=== PATIENT | female | born 1940 | race Caucasian/White ===

== ENCOUNTER 2021-10-12 16:51 | Inpatient (IN) | payer MEDICARE, BC ==
[~2021-10-12] VITALS: Ht 157.5 cm; Wt 41.4 kg
[2021-10-12 17:26] LABS: HEMATOCRIT 36.7 % (31.2-41.9); MEAN CORPUSCULAR VOLUME 87.9 fL (75.5-95.3); PLATELET COUNT (AUTO) 524 K/uL (179-408)
--- NOTE | 2021-10-12 17:27 | NUR ---
PT out of ER for CT scan.
[2021-10-12] MEDS ORDERED: CEFTRIAXONE 1 G in IV DEXTROSE 5% 50 ML IV ONE (17:45)
[2021-10-12 17:47] LABS: CARBON DIOXIDE 21 mmol/L (21-32); CHLORIDE 106 mmol/L (98-107); CREATININE 1.2 mg/dL (0.6-1.3); GLUCOSE 171 mg/dL (74-106); POTASSIUM 4.1 mmol/L (3.5-5.1); UREA NITROGEN, BLOOD 32 mg/dL (7-18)
[2021-10-12 17:48] LABS: THYROID STIMULATING HORMONE 0.745 mIU/mL (0.358-3.740)
[2021-10-12 17:53] LABS: ALANINE AMINOTRANSFERASE 32 U/L (14-59); ALKALINE PHOSPHATASE 113 U/L (50-136); ASPARTATE AMINOTRANSFERASE 22 U/L (15-37); BILIRUBIN,DIRECT 0.5 mg/dL (0.0-0.2); BILIRUBIN,TOTAL 0.8 mg/dL (0.2-1.0); TOTAL PROTEIN, SERUM 6.6 g/dL (6.4-8.2)
[2021-10-12] MEDS ORDERED: IV NORMAL SALINE 1000 ML BAG IV ONE ×2 (18:00→20:00)
[2021-10-12] MEDS ORDERED: IOHEXOL 350 100 ML INFUS..BTL ONE ×2 (18:06→19:58)
[2021-10-12] MEDS ORDERED: SWABABLE VALVE TRANSFER SET EA MC ONE ×2 (18:06→19:58)
[2021-10-12] MEDS ORDERED: IV NORMAL SALINE 0 ML IV ONE (18:06)
--- NOTE | 2021-10-12 18:09 | NUR ---
Dr Casas signed consent for CTA, due to pt's mental unability.
[2021-10-12] MEDS ORDERED: CEFTRIAXONE /D5W 50ML IVPB **ER PYXIS IV ONE ×2 (18:11→23:02)
--- NOTE | 2021-10-12 18:22 | NUR ---
Pt back from Ctscan, pt's HL on RT AC infiltrated and Chain Saw Mechanic unable to do CTA. Attempted to place a new prepheral line but unable, notified .
[2021-10-12] MEDS ORDERED: ENOXAPARIN SODIUM 40 MG/0.4 ML DISP.SYRIN SQ ONE ×2 (18:45→19:08)
[2021-10-12] MEDS ORDERED: DIPHENOXYLATE HCL/ATROP SULF TABLET PO ONE (18:45)
[2021-10-12] MEDS ORDERED: HYDR10TA PO (18:47)
[2021-10-12] MEDS ORDERED: PANT40TA49 PO (18:47)
[2021-10-12] MEDS ORDERED: METO25TA6 PO (18:47)
[2021-10-12] MEDS ORDERED: MAGN400T8 PO (18:47)
[2021-10-12] MEDS ORDERED: AMLO-212 PO (18:47)
[2021-10-12] MEDS ORDERED: CYCL100C PO (18:47)
[2021-10-12] MEDS ORDERED: SERT50TA PO (18:47)
[2021-10-12] MEDS ORDERED: FLUD0.1T PO (18:47)
[2021-10-12] MEDS ORDERED: MIDO2.5T PO (18:47)
[2021-10-12] MEDS ORDERED: ATOR10TA PO (18:47)
[2021-10-12] MEDS ORDERED: POTA10CA43 PO (18:47)
[2021-10-12] MEDS ORDERED: FERR325T28 PO (18:47)
--- NOTE | 2021-10-12 19:08 | NUR ---
Midline placed by midline nurse on RUE.
--- NOTE | 2021-10-12 19:57 | NUR ---
Patient went down to radiology dept for CTA.
[2021-10-12] MEDS ORDERED: IV NORMAL SALINE 250 ML IV ONE (19:58)
--- NOTE | 2021-10-12 20:13 | NUR ---
Patient back from CT. placed back on monitor. noted pt HR 130s. informed Dr. Jefe HALL MD. 1L IV fluids slowly infusing as ordered.
[2021-10-12] MEDS ORDERED: AZITHROMYCIN IV 500 MG in IV DEXTROSE 5% 250 ML IV SCH (20:30)
[2021-10-12] MEDS ORDERED: ONDANSETRON 4 MG/2 ML VIAL IV PRN (20:30)
[2021-10-12] MEDS ORDERED: PANTOPRAZOLE SODIUM 40 MG TABLET.DR PO SCH (20:30)
[2021-10-12] MEDS ORDERED: METOPROLOL TARTRATE 25 MG TABLET PO SCH (20:30)
[2021-10-12] MEDS ORDERED: DEXTROSE 50% 50 ML DISP.SYRIN IV PRN (20:45)
[2021-10-12] MEDS ORDERED: DOCUSATE SODIUM 250 MG CAPSULE PO SCH (21:00)
--- NOTE | 2021-10-12 22:06 | NUR ---
Patient's HR still remains in 130s. sinus tachycardia despite 1L IVF. patient is nonfebrile. temp 98.7 oral. Paged [facility] to speak with chacho ESTRELLA.
[2021-10-12] MEDS ORDERED: METOPROLOL TARTRATE 50 MG TABLET PO ONE (22:15)
[2021-10-12] MEDS ORDERED: AZITHROMYCIN 500MG/ D5W 250ML IVPB **ER PYXIS ONLY IV ONE ×2 (22:32→22:34)
[2021-10-12] MEDS ORDERED: DOCUSATE SODIUM 100 MG CAPSULE PO ONE (22:47)
[2021-10-12] MEDS ORDERED: ATORVASTATIN 40 MG TABLET ONE (22:48)
[2021-10-12] MEDS ORDERED: PANTOPRAZOLE SODIUM 40 MG TABLET.DR PO ONE (22:48)
[2021-10-12] MEDS: ATORVASTATIN 10 MG TABLET PO SCH (22:50)
[2021-10-12] MEDS: CEFTRIAXONE 1 G in IV DEXTROSE 5% 50 ML IV SCH (22:57)
[2021-10-13] MEDS: BLOOD SUGAR DIAGNOSTIC 1 EACH STRIP VI SCH ×5 (00:42→21:30)
[2021-10-13] MEDS: INSULIN REGULAR, HUMAN 300 UNIT/3 ML VIAL SQ PRN ×2 (00:42→12:34)
[2021-10-13] MEDS ORDERED: INSULIN REGULAR, HUMAN 300 UNIT/3 ML VIAL ONE ×2 (00:50→12:43)
--- NOTE | 2021-10-13 00:55 | NUR ---
Patients vital signs are improved. HR 99. BP 99/55. Patient appears in no distress. Patient is pending inpatient transfer for admission but no beds available at this time. Spoke w/pharmacist earlier who states no cyclosporine (modified Gengraf) available. called patient's son Buzz earlier and spoke with him & said they will bring her medication tomorrow AM. Pt. admitted to Telemetry, under care of Dr. King Dx: Altered Mental Status/Pneumonia Belongs List completed
[2021-10-13 06:09] LABS: MEAN CORPUSCULAR HEMOGLOBIN 28.8 uug (24.7-32.8); PLATELET COUNT (AUTO) 418 K/uL (179-408)
[2021-10-13] MEDS: PANTOPRAZOLE SODIUM 40 MG TABLET.DR PO SCH (07:00)
[2021-10-13 07:01] LABS: BILIRUBIN,TOTAL 0.3 mg/dL (0.2-1.0); CREATININE 1.2 mg/dL (0.6-1.3); MAGNESIUM 1.3 mg/dL (1.8-2.4); PHOSPHOROUS 3.7 mg/dL (2.5-4.9); POTASSIUM 4.4 mmol/L (3.5-5.1); TOTAL PROTEIN, SERUM 5.6 g/dL (6.4-8.2)
--- NOTE | 2021-10-13 07:56 | NUR ---
PT IS RESTING IN BED COMFORTABLY. NO S/S OF ACUTE DISTRESS AT THIS TIME.
[2021-10-13] MEDS: AMLODIPINE 5 MG TABLET PO SCH (08:22)
[2021-10-13] MEDS ORDERED: PANTOPRAZOLE SODIUM 40 MG TABLET.DR PO ONE (08:36)
[2021-10-13] MEDS ORDERED: HYDROCORTISONE 10 MG TABLET PO SCH (09:00)
[2021-10-13] MEDS ORDERED: ENOXAPARIN SODIUM 40 MG/0.4 ML DISP.SYRIN SQ SCH (09:00)
[2021-10-13] MEDS ORDERED: PANTOPRAZOLE SODIUM 40 MG VIAL IV SCH (09:00)
[2021-10-13] MEDS: CYCLOSPORINE 25 MG PO SCH ×2 (09:35→18:55)
[2021-10-13] MEDS: [UNRECOGNIZED DRUG - OTHER] PO SCH ×2 (09:35→18:55)
[2021-10-13] MEDS: MAGNESIUM SULFATE/D5W 100 ML IV SCH ×4 (09:53→12:30)
[2021-10-13] MEDS ORDERED: MAGNESIUM SULFATE/D5W 100 ML ONE ×3 (10:08→14:30)
--- NOTE | 2021-10-13 12:54 | NUR ---
PT'S SON ADRIENNE CALLED TO [facility] ER TO RECEIVE UPDATE ABOUT HIS MOTHER MEDICAL TRATMENT. DR PERDOMO STATED THAT SHE IS GOING TO CALL HIM ([phone]) WITH UPDATE AFTER SHE WILL REVIEWED PT's RECENT LABS AND CT SCANS RESULTS.
[2021-10-13 16:58] VITALS: BP 147/81
[2021-10-13 16:58] LABS: *BILIRUBIN,URIN NEGATIVE (NEGATIVE); *BLOOD, URINE 1+ (NEGATIVE); *CLARITY,URINE CLEAR (CLEAR); *COLOR,URINE YELLOW (YELLOW); *KETONES,URINE NEGATIVE (NEGATIVE); *UROBILINOGEN,URINE 0.2 E.U./dl (NORMAL); LEUKOCYTE ESTERASE ,URINE NEGATIVE (NEGATIVE); NITRITE, URINE NEGATIVE (NEGATIVE); UGLUCOSE NEGATIVE (NEGATIVE)
--- NOTE | 2021-10-13 17:00 | NUR ---
DR PERDOMO EVALUATED THE PT.
--- NOTE | 2021-10-13 17:01 | NUR ---
REPORT WAS GIVEN TO PHOTO MASK PATTERN GENERATOR HOMMER. PT WAS TRANSFERED TO ROOM #304.
[2021-10-13 17:14] LABS: BACTERIA,URINE NONE SEEN /HPF (NONE SEEN); CALCIUM OXALATE CRYSTALS,UR RARE /HPF (NONE SEEN); SQUAMOUS EPITHELIAL CELL,UR NONE SEEN /HPF (NONE SEEN)
[2021-10-13] MEDS ORDERED: FLUDROCORTISONE ACETATE 0.1 MG TABLET PO SCH (18:00)
--- NOTE | 2021-10-13 18:30 | NUR ---
Pt is in no acute distress. Noted swelling on right arm. ML flushes well. NOted bruising on UE's. Sacral redness. Noted pictures taken.
--- NOTE | 2021-10-13 19:00 | NUR ---
Received pt awake, alert and orientedx2. Pt in no acute distress. Iv intact.MCC assessment done. Admission process and care plan initiated. Safety and comfort provided. Will continue to monitor.
[2021-10-13] MEDS: FLUDROCORTISONE ACETATE 0.1 MG TABLET PO SCH (20:41)
[2021-10-13] MEDS: AZITHROMYCIN 250 MG TABLET PO SCH (20:41)
[2021-10-13] MEDS: DOCUSATE SODIUM 100 MG CAPSULE PO SCH (20:41)
[2021-10-13] MEDS: ATORVASTATIN 10 MG TABLET PO SCH (20:41)
[2021-10-13] MEDS: HYDROCORTISONE 10 MG TABLET PO SCH (20:45)
[2021-10-13] MEDS: ENOXAPARIN SODIUM 40 MG/0.4 ML DISP.SYRIN SQ SCH (20:52)
[2021-10-13 21:21] VITALS: BP 160/67
[2021-10-13 22:00] VITALS: BP 145/68
[2021-10-13] MEDS ORDERED: CEFTRIAXONE /D5W 50ML IVPB **ER PYXIS IV ONE (23:14)
[2021-10-13] MEDS: CEFTRIAXONE 1 G in IV DEXTROSE 5% 50 ML IV SCH (23:49)
[2021-10-13] MEDS: ACETAMINOPHEN 325 MG TABLET PO PRN (23:55)
[2021-10-14 00:16] VITALS: BP 144/68
[2021-10-14 05:00] VITALS: BP 128/69
[2021-10-14 05:48] LABS: HEMATOCRIT 31.7 % (31.2-41.9); MEAN CORPUSCULAR HEMOGLOBIN 29.4 uug (24.7-32.8); MEAN CORPUSCULAR VOLUME 88.8 fL (75.5-95.3); PLATELET COUNT (AUTO) 400 K/uL (179-408)
[2021-10-14 06:00] LABS: CREATININE 1.3 mg/dL (0.6-1.3); MAGNESIUM 2.5 mg/dL (1.8-2.4); PHOSPHOROUS 4.7 mg/dL (2.5-4.9); POTASSIUM 4.1 mmol/L (3.5-5.1)
[2021-10-14] MEDS: PANTOPRAZOLE SODIUM 40 MG TABLET.DR PO SCH (06:08)
--- NOTE | 2021-10-14 06:12 | NUR ---
Pt slept intermittently. Prescribed medication given and pt tolerated it well. Pt in no acute distress.Pt on sinus rhythm. Pt vital signs within normal limit. Pt given Tylenol prn for generalized pain. Safety and comfort provided. Will endorse to incoming nurse for continuity of care.
[2021-10-14] MEDS: BLOOD SUGAR DIAGNOSTIC 1 EACH STRIP VI SCH ×4 (06:38→20:36)
[2021-10-14] MEDS: CYCLOSPORINE 25 MG PO SCH ×2 (08:43→16:54)
[2021-10-14] MEDS: AMLODIPINE 5 MG TABLET PO SCH (08:43)
[2021-10-14] MEDS: [UNRECOGNIZED DRUG - OTHER] PO SCH ×2 (08:43→16:54)
[2021-10-14] MEDS: HYDROCORTISONE 10 MG TABLET PO SCH ×3 (08:45→16:53)
[2021-10-14] MEDS: INSULIN REGULAR, HUMAN 300 UNIT/3 ML VIAL SQ PRN ×4 (08:52→20:36)
[2021-10-14 11:44] VITALS: BP 177/90
[2021-10-14 16:00] VITALS: BP 160/84
[2021-10-14 20:10] VITALS: BP 133/77
[2021-10-14] MEDS: FLUDROCORTISONE ACETATE 0.1 MG TABLET PO SCH (20:36)
[2021-10-14] MEDS: AZITHROMYCIN 250 MG TABLET PO SCH (20:36)
[2021-10-14] MEDS: ATORVASTATIN 10 MG TABLET PO SCH (20:37)
[2021-10-14] MEDS: DOCUSATE SODIUM 100 MG CAPSULE PO SCH (20:37)
[2021-10-14] MEDS: ENOXAPARIN SODIUM 40 MG/0.4 ML DISP.SYRIN SQ SCH (20:39)
[2021-10-14] MEDS: CEFTRIAXONE 1 G in IV DEXTROSE 5% 50 ML IV SCH (23:19)
[2021-10-15 00:09] VITALS: BP 152/81
[2021-10-15 04:33] VITALS: BP 169/87
--- NOTE | 2021-10-15 04:50 | NUR ---
Blood pressure 169/87, assessed multiple times. Patient asymptomatic. Dr. Arnold Pang made aware with no new orders. States it is okay to wait to provide patient with her AM dose of Norvasc.
[2021-10-15] MEDS: PANTOPRAZOLE SODIUM 40 MG TABLET.DR PO SCH (06:01)
--- NOTE | 2021-10-15 06:38 | NUR ---
Patient slept well this shift. Patient is still confused, unable to comprehend teaching. No facial grimacing. Telemetry is NSR at 95 BPM. Is incontinent, hygiene provided. on 2L 02 via NC, 02 sats 100%. Safety measures continued. Call light within reach.
[2021-10-15] MEDS: BLOOD SUGAR DIAGNOSTIC 1 EACH STRIP VI SCH ×4 (06:56→21:10)
[2021-10-15 07:36] LABS: HEMATOCRIT 33.4 % (31.2-41.9); MEAN CORPUSCULAR HEMOGLOBIN 29.1 uug (24.7-32.8); MEAN CORPUSCULAR VOLUME 88.1 fL (75.5-95.3); PLATELET COUNT (AUTO) 184 K/uL (179-408)
[2021-10-15 07:47] LABS: PHOSPHOROUS 3.6 mg/dL (2.5-4.9); POTASSIUM 3.8 mmol/L (3.5-5.1)
[2021-10-15] MEDS: HYDROCORTISONE 10 MG TABLET PO SCH ×3 (08:19→16:55)
[2021-10-15] MEDS: AMLODIPINE 5 MG TABLET PO SCH (08:20)
[2021-10-15] MEDS: [UNRECOGNIZED DRUG - OTHER] PO SCH ×2 (08:20→16:55)
[2021-10-15] MEDS: CYCLOSPORINE 25 MG PO SCH ×2 (08:20→16:55)
[2021-10-15] MEDS: ACETAMINOPHEN 325 MG TABLET PO PRN (09:16)
[2021-10-15] MEDS: INSULIN REGULAR, HUMAN 300 UNIT/3 ML VIAL SQ PRN ×2 (11:28→21:09)
[2021-10-15 11:35] VITALS: BP 149/64
[2021-10-15] MEDS: GLUCERNA SHAKE 237 ML CAN PO SCH ×2 (12:27→17:32)
[2021-10-15 16:00] VITALS: BP 115/65
[2021-10-15 20:00] VITALS: BP 139/85
--- NOTE | 2021-10-15 20:10 | NUR ---
Received patient lying in bed, asleep. Easily aroused by name and light touch. Awake and alert. reoriented patient accordingly. Patient nods when asked questions. On tele monitor, showing sinus rhythm. On 2L O2 via NC, saturating at 100%. Plan is to titrate overnight. Safety precautions initiated. Bed locked, bed alarm activated and call light button within reach. Will continue to monitor.
[2021-10-15] MEDS: ATORVASTATIN 10 MG TABLET PO SCH (20:38)
[2021-10-15] MEDS: FLUDROCORTISONE ACETATE 0.1 MG TABLET PO SCH (20:38)
[2021-10-15] MEDS: DOCUSATE SODIUM 100 MG CAPSULE PO SCH (20:38)
[2021-10-15] MEDS: AZITHROMYCIN 250 MG TABLET PO SCH (20:38)
[2021-10-15] MEDS: ENOXAPARIN SODIUM 40 MG/0.4 ML DISP.SYRIN SQ SCH (20:39)
[2021-10-15] MEDS: CEFTRIAXONE 1 G in IV DEXTROSE 5% 50 ML IV SCH (22:43)
[2021-10-16] VITALS: BP 132/69
[2021-10-16 04:00] VITALS: BP 153/58
[2021-10-16] MEDS: PANTOPRAZOLE SODIUM 40 MG TABLET.DR PO SCH (06:32)
[2021-10-16 06:34] LABS: HEMATOCRIT 31.8 % (31.2-41.9); MEAN CORPUSCULAR HEMOGLOBIN 28.5 uug (24.7-32.8); MEAN CORPUSCULAR VOLUME 88.4 fL (75.5-95.3); PLATELET COUNT (AUTO) 404 K/uL (179-408)
[2021-10-16] MEDS: BLOOD SUGAR DIAGNOSTIC 1 EACH STRIP VI SCH ×4 (06:39→20:37)
--- NOTE | 2021-10-16 06:46 | NUR ---
Patient slept through the night with no distress noted. Sinus tachycardia with episodes of a-fib on monitor with HR of 130s. Notified MD accordingly. Await instructions. Attempted to titrate O2 down to room air, however, pt desats down to 92%. Now on 2L o2 via NC, saturating at 97%. IV access on KACY ML flushed, patent and intact. Oral care done. Compliant with medication regimen. All needs attended to and met. Safety precautions maintained. Will endorse to day shift.
[2021-10-16] MEDS: AMLODIPINE 5 MG TABLET PO SCH (06:55)
[2021-10-16 07:00] LABS: MAGNESIUM 1.8 mg/dL (1.8-2.4); PHOSPHOROUS 2.7 mg/dL (2.5-4.9)
--- NOTE | 2021-10-16 07:16 | NUR ---
AM Norvasc was given to lower down blood pressure, blood pressure taken showing results of 136/74mmhg and Hr of 111bpm. MD employee relations advisor, Arnold Malave was notified regarding pt's current status, no MD order yet. Will endorse to day shift.
[2021-10-16 08:00] VITALS: BP 118/62
[2021-10-16 08:20] LABS: POTASSIUM 2.6 mmol/L (3.5-5.1)
[2021-10-16] MEDS: [UNRECOGNIZED DRUG - OTHER] PO SCH ×2 (08:37→17:46)
[2021-10-16] MEDS: HYDROCORTISONE 10 MG TABLET PO SCH ×3 (08:37→17:46)
[2021-10-16] MEDS: CYCLOSPORINE 25 MG PO SCH ×2 (08:37→17:46)
[2021-10-16] MEDS: GLUCERNA SHAKE 237 ML CAN PO SCH ×3 (08:43→17:46)
[2021-10-16] MEDS ORDERED: DILTIAZEM HCL 25 MG IV IV ONE (08:45)
[2021-10-16] MEDS ORDERED: POTASSIUM CHLORIDE 20 MEQ POWDER PACKET PO ONE (09:00)
[2021-10-16] MEDS: INSULIN REGULAR, HUMAN 300 UNIT/3 ML VIAL SQ PRN ×2 (09:07→20:58)
--- NOTE | 2021-10-16 09:37 | NUR ---
transferred to keerthi status per md order. afib 133 at this time on the monitor. no acute distress noted
[2021-10-16] MEDS: APIXABAN 2.5 MG TABLET PO SCH ×2 (09:40→20:57)
[2021-10-16] MEDS ORDERED: AMIODARONE HCL IV 150 MG in IV DEXTROSE 5% 100 ML IV ONE (10:00)
[2021-10-16] MEDS: AMIODARONE HCL IV 450 MG in IV DEXTROSE 5% 250 ML IV PRN ×2 (11:36→23:40)
[2021-10-16 12:15] VITALS: BP 109/45
[2021-10-16 18:07] VITALS: BP 119/54
--- NOTE | 2021-10-16 19:00 | NUR ---
RECEIVED PATIENT ON AMIODARONE 16.6 CC/HR HEART RATE 104, TELE MONITOR SINUS TACHY, PATIENT ALERT, AWAKE, FOLLOW INSTRUCTIONS, NO S/S OF DISTRESS. CONT TO MONITOR.
[2021-10-16 20:30] VITALS: BP 118/56
[2021-10-16] MEDS: DOCUSATE SODIUM 100 MG CAPSULE PO SCH (20:36)
[2021-10-16] MEDS: AZITHROMYCIN 250 MG TABLET PO SCH (20:36)
[2021-10-16] MEDS: ATORVASTATIN 10 MG TABLET PO SCH (20:37)
[2021-10-16] MEDS: FLUDROCORTISONE ACETATE 0.1 MG TABLET PO SCH (20:37)
[2021-10-16] MEDS: ACETAMINOPHEN 325 MG TABLET PO PRN (22:39)
[2021-10-16] MEDS: CEFTRIAXONE 1 G in IV DEXTROSE 5% 50 ML IV SCH (22:43)
[2021-10-17 00:26] VITALS: BP 129/52
[2021-10-17 04:40] VITALS: BP 113/77
[2021-10-17] MEDS: PANTOPRAZOLE SODIUM 40 MG TABLET.DR PO SCH (06:05)
[2021-10-17] MEDS: BLOOD SUGAR DIAGNOSTIC 1 EACH STRIP VI SCH ×4 (06:17→20:48)
--- NOTE | 2021-10-17 06:41 | NUR ---
PATIENT AWAKE BUT WITH CONFUSION, NO SOB NO CHEST PAIN, TELE MONITOR STILL SINUS RYTHM THEN GOES BACK TO SINUS TACHY 99. CONT ON AMIODARONE 16.6 CC, TOLERATE WELL. PATIENT ON PUREED DIET, MEDS BEEN CRUSH, HOB ELEVATED, CONT TO MONITOR.
[2021-10-17 06:55] LABS: HEMATOCRIT 29.8 % (31.2-41.9); MEAN CORPUSCULAR HEMOGLOBIN 28.8 uug (24.7-32.8); MEAN CORPUSCULAR VOLUME 87.6 fL (75.5-95.3); PLATELET COUNT (AUTO) 361 K/uL (179-408)
[2021-10-17 07:12] LABS: CARBON DIOXIDE 26 mmol/L (21-32); CHLORIDE 104 mmol/L (98-107); CREATININE 1.5 mg/dL (0.6-1.3); GLUCOSE 139 mg/dL (74-106); MAGNESIUM 1.7 mg/dL (1.8-2.4); PHOSPHOROUS 2.9 mg/dL (2.5-4.9); UREA NITROGEN, BLOOD 31 mg/dL (7-18)
[2021-10-17 08:13] VITALS: BP 163/87
[2021-10-17] MEDS: [UNRECOGNIZED DRUG - OTHER] PO SCH ×2 (09:00→17:22)
[2021-10-17] MEDS: CYCLOSPORINE 25 MG PO SCH ×2 (09:00→17:22)
[2021-10-17] MEDS: HYDROCORTISONE 10 MG TABLET PO SCH ×3 (09:00→17:22)
[2021-10-17] MEDS: AMLODIPINE 5 MG TABLET PO SCH ×2 (09:00→11:48)
[2021-10-17] MEDS: GLUCERNA SHAKE 237 ML CAN PO SCH ×3 (09:01→17:24)
[2021-10-17] MEDS: APIXABAN 2.5 MG TABLET PO SCH ×2 (09:02→20:32)
[2021-10-17] MEDS ORDERED: MAGNESIUM SULFATE/D5W 100 ML IV SCH (10:00)
[2021-10-17] MEDS ORDERED: POTASSIUM CHLORIDE 20 MEQ POWDER PACKET PO ONE (10:00)
[2021-10-17] MEDS: AMIODARONE HCL 200 MG TABLET PO SCH ×2 (11:47→20:30)
[2021-10-17] MEDS: METOPROLOL TARTRATE 25 MG TABLET PO SCH ×2 (11:48→20:29)
[2021-10-17 12:02] VITALS: BP 160/75
[2021-10-17] MEDS: INSULIN REGULAR, HUMAN 300 UNIT/3 ML VIAL SQ PRN ×2 (12:41→20:51)
[2021-10-17] MEDS ORDERED: MEROPENEM 0.5 G in IV NORMAL SALINE 50 ML IV ONE (14:30)
[2021-10-17] MEDS: DOXYCYCLINE HYCLATE IV 100 MG in IV DEXTROSE 5% 100 ML IV SCH (15:34)
[2021-10-17 16:06] VITALS: BP 136/53
[2021-10-17] MEDS: DOCUSATE SODIUM 100 MG CAPSULE PO SCH (20:28)
[2021-10-17] MEDS: ATORVASTATIN 10 MG TABLET PO SCH (20:29)
[2021-10-17] MEDS: FLUDROCORTISONE ACETATE 0.1 MG TABLET PO SCH (20:29)
--- NOTE | 2021-10-17 20:45 | NUR ---
Patient in bed awake , more alert able to follow simple commands.On 3LPM via simple mask saturating at 99%.Denies pain .No s/s of distress noted.S/p Amiodarone drip. NSR on Tele.Midline on right upper patent and intact. Due meds given crushed with apple sauce.Tolerated well.Aspiration precaution observed at all times.Incontinent to both B & B .Pericare provided.Will continue to monitor.
[2021-10-17 21:01] VITALS: BP 153/62
[2021-10-17] MEDS: MEROPENEM 500 MG in IV NORMAL SALINE 50 ML IV SCH (23:12)
[2021-10-18] MEDS: DOXYCYCLINE HYCLATE IV 100 MG in IV DEXTROSE 5% 100 ML IV SCH ×3 (00:20→20:29)
[2021-10-18 00:22] VITALS: BP 142/61
[2021-10-18 04:37] VITALS: BP 117/72
[2021-10-18] MEDS: PANTOPRAZOLE SODIUM 40 MG TABLET.DR PO SCH (06:00)
[2021-10-18] MEDS: BLOOD SUGAR DIAGNOSTIC 1 EACH STRIP VI SCH ×5 (06:44→20:34)
[2021-10-18 06:45] LABS: MEAN CORPUSCULAR VOLUME 87.7 fL (75.5-95.3); PLATELET COUNT (AUTO) 414 K/uL (179-408)
[2021-10-18 07:20] LABS: MAGNESIUM 1.8 mg/dL (1.8-2.4); PHOSPHOROUS 3.1 mg/dL (2.5-4.9)
[2021-10-18 07:33] LABS: POTASSIUM 2.5 mmol/L (3.5-5.1)
--- NOTE | 2021-10-18 07:36 | NUR ---
potassium 2.5 md notified. awake alert. sr 80 on the monitor
[2021-10-18 08:27] VITALS: BP 164/77
[2021-10-18] MEDS ORDERED: POTASSIUM CHLORIDE 20 MEQ POWDER PACKET PO ONE (08:30)
[2021-10-18] MEDS: AMIODARONE HCL 200 MG TABLET PO SCH ×2 (08:34→20:30)
[2021-10-18] MEDS: METOPROLOL TARTRATE 25 MG TABLET PO SCH ×2 (08:35→20:29)
[2021-10-18] MEDS: HYDROCORTISONE 10 MG TABLET PO SCH ×3 (08:36→17:40)
[2021-10-18] MEDS: POTASSIUM CHLORIDE 50 ML IV SCH ×4 (08:36→12:27)
[2021-10-18] MEDS: GLUCERNA SHAKE 237 ML CAN PO SCH ×3 (08:39→17:41)
[2021-10-18] MEDS: APIXABAN 2.5 MG TABLET PO SCH ×2 (08:40→20:30)
[2021-10-18] MEDS: [UNRECOGNIZED DRUG - OTHER] PO SCH ×2 (08:47→17:41)
[2021-10-18] MEDS: CYCLOSPORINE 25 MG PO SCH ×2 (08:47→17:41)
[2021-10-18 12:35] VITALS: BP 159/69
[2021-10-18] MEDS: MEROPENEM 500 MG in IV NORMAL SALINE 50 ML IV SCH ×2 (12:40→23:11)
[2021-10-18 16:12] VITALS: BP 131/71
[2021-10-18] MEDS: ATORVASTATIN 10 MG TABLET PO SCH (20:29)
[2021-10-18] MEDS: DOCUSATE SODIUM 100 MG CAPSULE PO SCH (20:29)
[2021-10-18 20:30] VITALS: BP 150/66
[2021-10-18] MEDS: FLUDROCORTISONE ACETATE 0.1 MG TABLET PO SCH (20:30)
[2021-10-18] MEDS: INSULIN REGULAR, HUMAN 300 UNIT/3 ML VIAL SQ PRN (20:35)
[2021-10-19 00:03] VITALS: BP 156/68
[2021-10-19] MEDS: PANTOPRAZOLE SODIUM 40 MG TABLET.DR PO SCH (06:45)
[2021-10-19] MEDS: BLOOD SUGAR DIAGNOSTIC 1 EACH STRIP VI SCH ×5 (06:46→20:47)
--- NOTE | 2021-10-19 07:50 | NUR ---
Received resting. IVF infusing no infiltration noted on iv site. No facial grimacing. Appears comfortable. Siderails up xx bed low and locked. Call light in reach.
[2021-10-19] MEDS: INSULIN REGULAR, HUMAN 300 UNIT/3 ML VIAL SQ PRN ×2 (08:11→16:52)
[2021-10-19 08:22] LABS: HEMATOCRIT 30.2 % (31.2-41.9); MEAN CORPUSCULAR HEMOGLOBIN 29.1 uug (24.7-32.8); MEAN CORPUSCULAR VOLUME 87.9 fL (75.5-95.3); PLATELET COUNT (AUTO) 425 K/uL (179-408)
[2021-10-19 08:28] LABS: CREATININE 0.9 mg/dL (0.6-1.3); MAGNESIUM 1.6 mg/dL (1.8-2.4); PHOSPHOROUS 2.8 mg/dL (2.5-4.9); POTASSIUM 3.7 mmol/L (3.5-5.1)
[2021-10-19] MEDS: DOXYCYCLINE HYCLATE IV 100 MG in IV DEXTROSE 5% 100 ML IV SCH ×2 (08:32→20:21)
[2021-10-19] MEDS ORDERED: MAGNESIUM SULFATE/D5W 100 ML IV SCH (09:15)
[2021-10-19] MEDS: [UNRECOGNIZED DRUG - OTHER] PO SCH ×2 (09:48→17:46)
[2021-10-19] MEDS: CYCLOSPORINE 25 MG PO SCH ×2 (09:48→17:46)
[2021-10-19] MEDS: METOPROLOL TARTRATE 25 MG TABLET PO SCH ×2 (09:49→20:33)
[2021-10-19] MEDS: HYDROCORTISONE 10 MG TABLET PO SCH ×3 (09:50→17:46)
[2021-10-19] MEDS: AMIODARONE HCL 200 MG TABLET PO SCH ×2 (09:50→20:32)
[2021-10-19] MEDS: AMLODIPINE 5 MG TABLET PO SCH (09:50)
[2021-10-19] MEDS: APIXABAN 2.5 MG TABLET PO SCH ×2 (09:59→20:34)
[2021-10-19] MEDS: POTASSIUM CHLORIDE 50 ML IV SCH ×2 (10:07→11:27)
[2021-10-19] MEDS: GLUCERNA SHAKE 237 ML CAN PO SCH ×3 (10:13→17:46)
[2021-10-19] MEDS: MAGNESIUM SULFATE/D5W 100 ML IV SCH ×2 (10:39→11:58)
--- NOTE | 2021-10-19 11:19 | NUR ---
Dr. yo roundbetty updated on patient's condition. no new orders received.
[2021-10-19 11:34] VITALS: BP 109/70
[2021-10-19] MEDS: MEROPENEM 500 MG in IV NORMAL SALINE 50 ML IV SCH (13:15)
[2021-10-19 15:25] VITALS: BP 139/64
--- NOTE | 2021-10-19 19:30 | NUR ---
Received pt awake, alert and orientedx2. Iv intact. Pt in no acute distress. Iv intact. Pt on 2l Nasal cannula. Safety and comfort provided. Will continue to monitor.
[2021-10-19 20:00] VITALS: BP 147/54
[2021-10-19] MEDS: ATORVASTATIN 10 MG TABLET PO SCH (20:21)
[2021-10-19] MEDS: DOCUSATE SODIUM 100 MG CAPSULE PO SCH (20:21)
[2021-10-19] MEDS: FLUDROCORTISONE ACETATE 0.1 MG TABLET PO SCH (20:22)
[2021-10-20] MEDS: MEROPENEM 500 MG in IV NORMAL SALINE 50 ML IV SCH ×2 (00:08→12:56)
[2021-10-20 04:00] VITALS: BP 138/74
--- NOTE | 2021-10-20 06:13 | NUR ---
Pt in no acute distress. Iv intact. Prescribed medication given and pt tolerated it well.Pt on 2l oxygen . Safety and comfort provided. All needs are met . Will endorse to incoming nurse for continuity of care.
[2021-10-20] MEDS: PANTOPRAZOLE SODIUM 40 MG TABLET.DR PO SCH (06:14)
[2021-10-20] MEDS: BLOOD SUGAR DIAGNOSTIC 1 EACH STRIP VI SCH ×4 (06:39→21:36)
[2021-10-20 07:16] LABS: CREATININE 0.9 mg/dL (0.6-1.3); MAGNESIUM 2.1 mg/dL (1.8-2.4); POTASSIUM 3.6 mmol/L (3.5-5.1)
--- NOTE | 2021-10-20 08:00 | NUR ---
Patient on bed awake, alert x2-3, able to follow simple directions. On continuous O2 at 2LPM via nasal cannula, not in labored breathing. No complain pain. With KACY midline intact, no swelling noted. On Physical therapy.Needs minimal to moderate assist when mobilizing on bed. With bruises on both arms, with redness at sacral area, applied zguard during perineal care. With good appetite.
[2021-10-20] MEDS: DOXYCYCLINE HYCLATE IV 100 MG in IV DEXTROSE 5% 100 ML IV SCH ×2 (08:34→21:30)
[2021-10-20] MEDS: HYDROCORTISONE 10 MG TABLET PO SCH ×3 (08:34→16:26)
[2021-10-20] MEDS: AMIODARONE HCL 200 MG TABLET PO SCH ×2 (08:36→21:31)
[2021-10-20] MEDS: APIXABAN 2.5 MG TABLET PO SCH ×2 (08:36→21:33)
[2021-10-20] MEDS: CYCLOSPORINE 25 MG PO SCH ×2 (08:37→16:28)
[2021-10-20] MEDS: AMLODIPINE 5 MG TABLET PO SCH (08:37)
[2021-10-20] MEDS: [UNRECOGNIZED DRUG - OTHER] PO SCH ×2 (08:37→16:28)
[2021-10-20] MEDS: METOPROLOL TARTRATE 25 MG TABLET PO SCH ×2 (08:37→21:32)
[2021-10-20] MEDS: GLUCERNA SHAKE 237 ML CAN PO SCH ×3 (08:38→16:28)
[2021-10-20] MEDS: POTASSIUM CHLORIDE 10 MEQ TAB.PRT.SR PO SCH (08:55)
[2021-10-20] MEDS: INSULIN REGULAR, HUMAN 300 UNIT/3 ML VIAL SQ PRN ×3 (12:36→22:05)
--- NOTE | 2021-10-20 17:45 | NUR ---
Seen by Dr Castellano (Nephro) regarding sepsis and pneumonia. He contacted the family to discuss renal transplant history but he wasn`t able to reached out.
[2021-10-20 20:36] VITALS: BP 133/58
[2021-10-20] MEDS: DOCUSATE SODIUM 100 MG CAPSULE PO SCH (21:31)
[2021-10-20] MEDS: FLUDROCORTISONE ACETATE 0.1 MG TABLET PO SCH (21:31)
[2021-10-20] MEDS: ATORVASTATIN 10 MG TABLET PO SCH (21:32)
[2021-10-20] MEDS: ACETAMINOPHEN 325 MG TABLET PO PRN (23:17)
[2021-10-21] MEDS: MEROPENEM 500 MG in IV NORMAL SALINE 50 ML IV SCH ×2 (00:24→12:58)
[2021-10-21 04:58] VITALS: BP 143/80
[2021-10-21] MEDS: PANTOPRAZOLE SODIUM 40 MG TABLET.DR PO SCH (06:07)
--- NOTE | 2021-10-21 06:22 | NUR ---
Patient alert x2 able to follow simple directions.No s/s of distress noted. On continuous O2 at 2LPM via nasal cannula, not in laWith KACY midline intact.Continue on ATB therapy.No a/r noted.Incontinent to borh B & B.Pericare rendered. Compliant with medication.All VSS.All needs anticipated and met accordingly.
[2021-10-21 06:29] LABS: HEMATOCRIT 30.8 % (31.2-41.9); MEAN CORPUSCULAR HEMOGLOBIN 28.5 uug (24.7-32.8); PLATELET COUNT (AUTO) 455 K/uL (179-408)
[2021-10-21] MEDS: BLOOD SUGAR DIAGNOSTIC 1 EACH STRIP VI SCH ×4 (06:46→20:37)
[2021-10-21 06:51] LABS: BILIRUBIN,TOTAL 0.3 mg/dL (0.2-1.0); MAGNESIUM 1.7 mg/dL (1.8-2.4); PHOSPHOROUS 3.7 mg/dL (2.5-4.9); POTASSIUM 3.5 mmol/L (3.5-5.1); TOTAL PROTEIN, SERUM 5.7 g/dL (6.4-8.2)
[2021-10-21] MEDS: DOXYCYCLINE HYCLATE IV 100 MG in IV DEXTROSE 5% 100 ML IV SCH ×2 (08:21→20:25)
[2021-10-21] MEDS: INSULIN REGULAR, HUMAN 300 UNIT/3 ML VIAL SQ PRN ×4 (08:22→21:31)
[2021-10-21] MEDS: AMIODARONE HCL 200 MG TABLET PO SCH ×2 (08:26→20:26)
[2021-10-21] MEDS: AMLODIPINE 5 MG TABLET PO SCH (08:26)
[2021-10-21] MEDS: METOPROLOL TARTRATE 25 MG TABLET PO SCH ×2 (08:27→20:27)
[2021-10-21] MEDS: POTASSIUM CHLORIDE 10 MEQ TAB.PRT.SR PO SCH (08:27)
[2021-10-21] MEDS: [UNRECOGNIZED DRUG - OTHER] PO SCH ×2 (08:28→17:55)
[2021-10-21] MEDS: CYCLOSPORINE 25 MG PO SCH ×2 (08:28→17:55)
[2021-10-21] MEDS: HYDROCORTISONE 10 MG TABLET PO SCH ×3 (08:28→17:52)
[2021-10-21] MEDS: APIXABAN 2.5 MG TABLET PO SCH ×2 (08:28→20:35)
[2021-10-21] MEDS: GLUCERNA SHAKE 237 ML CAN PO SCH ×3 (08:29→17:53)
--- NOTE | 2021-10-21 08:30 | NUR ---
awake, oriented to self and place, no distress noted, on 2l/nc sat at 96%, repositioned and readied for breakfast, fed by INSURANCE TERRITORY MANAGER- aspiration precautions observed
[2021-10-21 12:00] VITALS: BP 118/33
[2021-10-21] MEDS ORDERED: MAGNESIUM OXIDE 400 MG TABLET PO ONE (14:00)
--- NOTE | 2021-10-21 14:00 | NUR ---
bladder scan done- obtained 45ml
--- NOTE | 2021-10-21 14:20 | NUR ---
in and out cath done aseptically for urine specimen and sent to lab- tolerated well
[2021-10-21 16:10] VITALS: BP 125/50
[2021-10-21 16:26] LABS: *BILIRUBIN,URIN NEGATIVE (NEGATIVE); *BLOOD, URINE NEGATIVE (NEGATIVE); *COLOR,URINE YELLOW (YELLOW); *KETONES,URINE NEGATIVE (NEGATIVE); *UROBILINOGEN,URINE 0.2 E.U./dl (NORMAL); LEUKOCYTE ESTERASE ,URINE TRACE (NEGATIVE); NITRITE, URINE NEGATIVE (NEGATIVE); PH,URINE 5.5 (5.0-8.0); UGLUCOSE NEGATIVE (NEGATIVE)
[2021-10-21 16:36] LABS: *CLARITY,URINE SLIGHTLY CLOUDY (CLEAR); BACTERIA,URINE FEW /HPF (NONE SEEN); CALCIUM OXALATE CRYSTALS,UR FEW /HPF (NONE SEEN); SQUAMOUS EPITHELIAL CELL,UR MODERATE /HPF (NONE SEEN); YEAST,URINE MODERATE /HPF (NONE SEEN)
--- NOTE | 2021-10-21 19:08 | NUR ---
no distress noted, all needs attended and met, call light within reach
[2021-10-21] MEDS: FLUDROCORTISONE ACETATE 0.1 MG TABLET PO SCH (20:26)
[2021-10-21] MEDS: ATORVASTATIN 10 MG TABLET PO SCH (20:26)
[2021-10-21] MEDS: DOCUSATE SODIUM 100 MG CAPSULE PO SCH (20:28)
[2021-10-21 20:37] VITALS: BP 117/50
[2021-10-21] MEDS ORDERED: FLUCONAZOLE 200 MG/NS 100ML IV 100 MG in PREMIXED 1 EACH IV SCH (21:00)
[2021-10-22] MEDS: MEROPENEM 500 MG in IV NORMAL SALINE 50 ML IV SCH ×2 (00:27→12:28)
[2021-10-22 04:00] VITALS: BP 164/74
[2021-10-22 05:00] VITALS: BP 158/70
[2021-10-22] MEDS: PANTOPRAZOLE SODIUM 40 MG TABLET.DR PO SCH (06:19)
--- NOTE | 2021-10-22 06:19 | NUR ---
Patient slept well throughout the night.No acute distress noted.Continue on O2 inhalation at 2 LPM via NC.HOB elevated.Incontinent.Urinated well x2 .Compliant with medication .Continue on ATB therapy.Midline on right upper arm patent and intact.BS this morning 84.OJ and apple sauce given.Patient has good appetite. Will endorse to oncoming shift.
[2021-10-22] MEDS: BLOOD SUGAR DIAGNOSTIC 1 EACH STRIP VI SCH ×4 (06:30→21:37)
[2021-10-22 06:41] LABS: HEMATOCRIT 33.1 % (31.2-41.9); MEAN CORPUSCULAR HEMOGLOBIN 28.6 uug (24.7-32.8); MEAN CORPUSCULAR VOLUME 87.9 fL (75.5-95.3); PLATELET COUNT (AUTO) 505 K/uL (179-408)
[2021-10-22 07:12] LABS: BILIRUBIN,TOTAL 0.4 mg/dL (0.2-1.0); MAGNESIUM 1.6 mg/dL (1.8-2.4); PHOSPHOROUS 3.3 mg/dL (2.5-4.9); POTASSIUM 3.7 mmol/L (3.5-5.1); TOTAL PROTEIN, SERUM 5.9 g/dL (6.4-8.2)
[2021-10-22] MEDS: DOXYCYCLINE HYCLATE IV 100 MG in IV DEXTROSE 5% 100 ML IV SCH ×2 (08:35→21:32)
[2021-10-22] MEDS: POTASSIUM CHLORIDE 10 MEQ TAB.PRT.SR PO SCH (08:47)
[2021-10-22] MEDS: AMIODARONE HCL 200 MG TABLET PO SCH ×2 (08:48→21:27)
[2021-10-22] MEDS: APIXABAN 2.5 MG TABLET PO SCH ×2 (08:49→21:24)
[2021-10-22] MEDS: GLUCERNA SHAKE 237 ML CAN PO SCH ×3 (08:49→17:29)
[2021-10-22] MEDS: METOPROLOL TARTRATE 25 MG TABLET PO SCH ×2 (08:50→21:27)
[2021-10-22] MEDS: AMLODIPINE 5 MG TABLET PO SCH (08:50)
[2021-10-22] MEDS: HYDROCORTISONE 10 MG TABLET PO SCH ×3 (08:51→17:29)
[2021-10-22] MEDS ORDERED: MAGNESIUM SULFATE/D5W 100 ML IV SCH (09:30)
[2021-10-22] MEDS: MAGNESIUM SULFATE/D5W 100 ML IV SCH ×2 (10:40→11:42)
[2021-10-22] MEDS: [UNRECOGNIZED DRUG - OTHER] PO SCH ×2 (10:43→17:30)
[2021-10-22] MEDS: CYCLOSPORINE 25 MG PO SCH ×2 (10:43→17:30)
--- NOTE | 2021-10-22 11:00 | NUR ---
Notified DR King that the Cyclosporine level lab result is not yet here the lab send the specimen to an out side lab and will take 1 to 2 days for the result to come back. DR King OK for Gengraf 25 mg to be given.
[2021-10-22 11:53] VITALS: BP 123/50
[2021-10-22] MEDS: INSULIN REGULAR, HUMAN 300 UNIT/3 ML VIAL SQ PRN ×3 (12:00→21:38)
--- NOTE | 2021-10-22 13:50 | NUR ---
Received PT AAOx1 to 2. Resting in bed .No acute distress noted.Continue on O2 inhalation at 2 LPM via NC sat 95% .HOB elevated.Incontinent.Urinated well x2 .Compliant with medication Continue on ATB therapy IV, Mag replace 2 bas given .Midline on right upper arm patent and intact.BS check as ordered and Insulin given per sliding scale.Patient required assistant office manager with feeding . Will continue to monitor .
[2021-10-22 16:11] VITALS: BP 149/38
[2021-10-22 20:00] VITALS: BP 117/82
[2021-10-22] MEDS: DOCUSATE SODIUM 100 MG CAPSULE PO SCH (21:23)
[2021-10-22] MEDS: FLUDROCORTISONE ACETATE 0.1 MG TABLET PO SCH (21:24)
[2021-10-22] MEDS: ATORVASTATIN 10 MG TABLET PO SCH (21:24)
[2021-10-23] MEDS: MEROPENEM 500 MG in IV NORMAL SALINE 50 ML IV SCH ×2 (00:11→12:07)
[2021-10-23 05:34] VITALS: BP 118/80
--- NOTE | 2021-10-23 05:48 | NUR ---
Pt in bed resting. Alert to name and touch. Unable to follow commands. IV site intact. Tolerated all medications given. Will endorse to day shift.
[2021-10-23] MEDS: PANTOPRAZOLE SODIUM 40 MG TABLET.DR PO SCH (06:26)
[2021-10-23] MEDS: BLOOD SUGAR DIAGNOSTIC 1 EACH STRIP VI SCH ×3 (06:33→16:30)
[2021-10-23 06:41] LABS: HEMATOCRIT 32.5 % (31.2-41.9); MEAN CORPUSCULAR HEMOGLOBIN 28.9 uug (24.7-32.8); MEAN CORPUSCULAR VOLUME 87.5 fL (75.5-95.3); PLATELET COUNT (AUTO) 570 K/uL (179-408)
[2021-10-23 07:03] LABS: CREATININE 1.1 mg/dL (0.6-1.3); PHOSPHOROUS 3.7 mg/dL (2.5-4.9); POTASSIUM 3.9 mmol/L (3.5-5.1)
[2021-10-23] MEDS: DOXYCYCLINE HYCLATE IV 100 MG in IV DEXTROSE 5% 100 ML IV SCH (09:10)
[2021-10-23] MEDS: HYDROCORTISONE 10 MG TABLET PO SCH ×3 (09:11→17:52)
[2021-10-23] MEDS: GLUCERNA SHAKE 237 ML CAN PO SCH ×3 (09:12→17:44)
[2021-10-23] MEDS: APIXABAN 2.5 MG TABLET PO SCH (09:12)
[2021-10-23] MEDS: [UNRECOGNIZED DRUG - OTHER] PO SCH ×2 (09:13→17:00)
[2021-10-23] MEDS: CYCLOSPORINE 25 MG PO SCH ×2 (09:13→17:00)
[2021-10-23] MEDS: METOPROLOL TARTRATE 25 MG TABLET PO SCH (09:13)
[2021-10-23] MEDS: POTASSIUM CHLORIDE 10 MEQ TAB.PRT.SR PO SCH (09:14)
[2021-10-23] MEDS: AMLODIPINE 5 MG TABLET PO SCH (09:15)
[2021-10-23] MEDS: ACETAMINOPHEN 325 MG TABLET PO PRN (10:47)
--- NOTE | 2021-10-23 11:39 | NUR ---
WOUND CARE CONSULT: RECEIVED REQUEST FOR SACRAL SKIN ASSESSMENT FROM MEDICAL LAB TECHNOLOGIST. SACRAL SCAR NOTED WITH VERY BONY SACRAL AREA, PRESENT ON ADMISSION. RECOMMENDATIONS MADE FOR SKIN PROTECTION. DISCUSSED WITH NURSING STAFF. PT INCONTINENT OF LOOSE STOOL. IN AGREEMENT WITH PLAN OF CARE. Addendum: 10/23/21 at 1141 by ARIELLA TRUJILLO RN Amended: Links added.
[2021-10-23] MEDS ORDERED: REMEDY ESSENTIAL ZINC PASTE 113 GM TOP PRN (11:45)
[2021-10-23 12:00] VITALS: BP 95/50
[2021-10-23] MEDS: INSULIN REGULAR, HUMAN 300 UNIT/3 ML VIAL SQ PRN ×2 (12:11→17:48)
[2021-10-23 16:00] VITALS: BP 108/51
[2021-10-23] MEDS ORDERED: APIX2.5T PO (16:02)
[2021-10-23] MEDS ORDERED: AMOX-427 PO (16:02)
[2021-10-23] MEDS ORDERED: METO25TA6 PO (16:02)
[2021-10-23] MEDS ORDERED: NUT.237L36 PO (16:02)
[2021-10-23] MEDS ORDERED: POTA10CA43 PO (16:02)
[2021-10-23] MEDS ORDERED: DOXY100C5 PO (16:02)
[2021-10-23] MEDS ORDERED: DOCU-141 PO (16:02)
--- NOTE | 2021-10-23 19:00 | NUR ---
Discharge PT to [facility] left in stable condition via [facility] ID band and MID line was D/C al belongs and own Med given to ambulance personal .
[2021-10-23] MEDS ORDERED: REMEDY ESSENTIAL ZINC PASTE 113 GM TOP SCH (21:00)
== END 2021-10-23 19:10 | DRG 871 ==
LOC: ER 16:55 → TRANSITION 10-13 02:04 → TELE3 10-13 16:01 → TELE-TD3 10-16 09:12 → MEDSURG3 10-18 10:05 → TELE3 10-18 11:00 → MEDSURG3 10-19 10:51
PROVIDERS: ADMIT Student in an Organized Health Care Education/Training Program; ATTEND Internal Medicine
PROC: 05H533Z Insertion of Infusion Device into Right Subclavian Vein, Percutaneous Approach (ICD-10-PCS; principal; 2021-10-12)
PROC: B546ZZA Ultrasonography of Right Subclavian Vein, Guidance (ICD-10-PCS; 2021-10-12)
DX: A41.9 Sepsis, unspecified organism (principal); E43 Unspecified severe protein-calorie malnutrition; G92.8 Other toxic encephalopathy; J69.0 Pneumonitis due to inhalation of food and vomit; N17.0 Acute kidney failure with tubular necrosis; Z68.1 Body mass index [BMI] 19.9 or less, adult; B37.49 Other urogenital candidiasis; Z94.2 Lung transplant status; E11.9 Type 2 diabetes mellitus without complications; D75.839 Thrombocytosis, unspecified; E78.5 Hyperlipidemia, unspecified; E83.42 Hypomagnesemia; E86.0 Dehydration; E87.6 Hypokalemia; E88.09 Other disorders of plasma-protein metabolism, not elsewhere classified; F01.50 Vascular dementia, unspecified severity, without behavioral disturbance, psychotic disturbance, mood disturbance, and anxiety; F32.A Depression, unspecified; I10 Essential (primary) hypertension; I48.0 Paroxysmal atrial fibrillation; Z20.822 Contact with and (suspected) exposure to COVID-19; Z86.73 Personal history of transient ischemic attack (TIA), and cerebral infarction without residual deficits; Z79.01 Long term (current) use of anticoagulants; Z87.440 Personal history of urinary (tract) infections; Z91.81 History of falling; Z79.899 Other long term (current) drug therapy; R53.1 Weakness; I51.7 Cardiomegaly
CPT/HCPCS: 36415; 51798; 70030-TC; 70450; 71045; 71275; 76770; 76881; 83605; 83735; 84100; 84443; 85025; 86140; 87040; 87086; 93005; 93307; 97161; A4663; A6209; C1758; G0378; J0282; J0456; J0696; J1450; J1650; J1815; J2185; J2405; J3475; J3480; J3490; J7030; J7040; J7050; J7060; J7515; Q0144; Q9967